=== PATIENT | female | born 2000 ===

== ENCOUNTER 2024-05-22 00:11 | Inpatient (IN) | payer MEDICAID, OTHER ==
[~2024-05-22] VITALS: Ht 160 cm; Wt 81.6 kg
[2024-05-22] MEDS ORDERED: OXYTOCIN 10UNIT/ML 1ML VIAL ONE (00:23)
[2024-05-22] MEDS ORDERED: METHYLERGONOVINE MALEATE 0.2 MG/ML AMP IM ONE (00:23)
[2024-05-22] MEDS ORDERED: LIDOCAINE 2%HCL (LOCAL ANESTH.) INJ 20ML MDV ONE (00:24)
[2024-05-22] MEDS ORDERED: BUTORPHANOL TARTRATE 2 MG/1 ML VIAL IV PRN ×2 (00:45)
[2024-05-22] MEDS ORDERED: PHYTONADIONE 1MG/0.5ML SYRINGE NEONATAL IM ONE (00:45)
[2024-05-22] MEDS ORDERED: HEPATITIS B PEDIATRIC VACCINE 10 MCG/0.5 ML IM ONE (00:45)
[2024-05-22] MEDS ORDERED: ERYTHROMY OPTH OINT 5mg/gm 1gm or 3.5gm tube OP ONE (00:45)
[2024-05-22] MEDS ORDERED: ACCU-CHEK COMFORT CURVE STRIP VI PRN (00:45)
[2024-05-22] MEDS ORDERED: LACTATED RINGER'S 1,000 ML IV SCH (00:45)
[2024-05-22 01:32] LABS: Urine Bacteria None Seen /hpf (None Seen)
[2024-05-22 01:36] LABS: Basophils # (auto) 0 10 ^3/uL (0-0.2); Eosinophils # (auto) 0 10 ^3/uL (0-0.8); Lymphocytes # (auto) 0.7 10 ^3/uL (0.4-5.4); Monocytes # (auto) 0.9 10 ^3/uL (0-1.3); Nucleated Red Blood Cells % 0.1 %; White Blood Cell 12.7 10^3/uL (4.4-10.8)
[2024-05-22 01:38] LABS: Basophils % (auto) 0.3 % (0.0-2.0); Hematocrit 32.9 % (36.0-46.0); Hemoglobin 10.8 g/dL (12.2-16.2); Lymphocytes % (auto) 5.6 % (10.0-50.0); Mean Corpuscular Hemoglobin 26.1 pg (28.0-32.0); Mean Corpuscular Hgb Conc. 32.7 g/dL (32.0-36.0); Mean Corpuscular Volume 79.8 fL (80.0-100.0); Monocytes % (auto) 7.4 % (0.0-12.0); Neutrophils % (auto) 86.7 % (37.0-80.0); Platelet Count (auto) 271 10^3/uL (140-450); Red Blood Cells 4.13 10^6/uL (4.0-5.20); Red Cell Distribution Width 16.1 % (11.8-14.3)
--- NOTE | 2024-05-22 01:48 | DVHHP2 ---
OB CC & HPI Date Date of Admission: May 22, 2024 Patient Identification: : 2 Para: 1 EDC: Jun 15, 2024 EGA: 36.4wks Chief Complaints: Reason for admission: active labor History of Present Complaints 23yo IUP@36.4wks presents to birthplace via ambulance with urge to push, reports SROM at 2312 with clear fluid, irregular UCs for the last 4 days. Denies VB/BARTH/vision changes/RUQ pain. Endorses +FM. Denies previous c/s scar pain/burning. Pt reports receiving PNC in [place] (last visit in dec 2023). Has not established OB care in [place]. No records available. OB hx: #1 - 05/2023, Primary C/S for severe preeclampsia at 29wks #2 - current Past Medical History Cardiac: No pertinent Hx Pulmonary: No pertinent Hx Central Nervous System: No pertinent Hx GI: No pertinent Hx Hemotology/Oncology: Iron deficiency anemia Hepatobiliary: No pertinent Hx Psychiatric: No pertinent Hx Musculoskeletal: No pertinent Hx Rheumotologic: No pertinent Hx Infectious Disease: No peritnent Hx ENT: No pertinent Hx Renal/: No pertinent Hx Endocrine: No pertinent Hx Dermatology: No pertinent Hx Past Surgical History: OB History OB History Care: Limited Care Ultrasounds: No ultrasounds Obstetrical Complications: None Medical Complications: None Allergies: Coded Allergies: Penicillins (Verified Adverse Reaction, Severe, severe nausea , 05/22/24) Home Meds PNV Current Medications Current Medications Medications (Trade) Dose Ordered Sig/Ruben Route PRN Reason Start Time Stop Time Status Last Admin Lactated Ringer's 1,000 ml @ 125 mls/hr Q8H IV 05/22/24 00:45 Witch Carmen (Tucks) 1 pad PRN PRN TOP PERINEAL AREA DISCOMFORT 05/22/24 00:45 Sodium Lauryl Sulfate (Phisoderm) 240 ml PRN PRN TOP PERINEAL AREA DISCOMFORT 05/22/24 00:45 Benzocaine (Dermoplast) 1 applic PRN PRN TOP PERINEAL AREA DISCOMFORT 05/22/24 00:45 Butorphanol Tartrate (Stadol Injection) 1 mg Q4HPRN PRN IV MODERATE PAIN (4-6 PAIN SCALE) 05/22/24 00:45 Butorphanol Tartrate (Stadol Injection) 2 mg Q4HPRN PRN IV SEVERE PAIN (7-10 PAIN SCALE) 05/22/24 00:45 Lidocaine HCl (Xylocaine) 20 ml ONCE PRN IJ PERINEAL AREA DISCOMFORT 05/22/24 00:45 Diagnostic Test (Pha) (Accu-Chek Comfort Curve T) 1 strip UD PRN blood glucose 05/22/24 00:45 05/23/24 00:44 UNV Family & Social History Family/Social History Past Family/Social History: denies Blood Type: Unknown Rubella: unknown RPR/VDRL: Unknown GBS Status: Unknown HBsAG: Unknown Review of Systems Constitutional: No symptom reported Ears, Nose, & Throat: No symptom reported Eyes: No symptom reported Pulmonary/Respiratory: No symptom reported Cardiovascular: No symptom reported Gastrointestinal: No symptom reported Genitourinary: No symptom reported Musculoskeletal: No symptom reported Skin: No symptom reported Psychiatric: No symptom reported Endocrine: No symptom reported Hemotologic/Lymphatic: No symptom reported OB Admission Exam Physical Exam Vitals: VSS, see chart +FHTs by RN HEENT: TMs Normal, Fontanelles Normal, Nasal Mucosa Normal, Eyes non-injected, Oropharynx Normal, PERRLA, Moist Membranes, EOMI Heart: Rhythm Normal Lungs: Clear Abdomen: Gravid Extremities: Normal Reflexes: Normal Pelvic Exam: deferred, head visible at perineum OB Plan Plan Admitting Diagnosis: precipitous Plan: Expectant Management Other Plan: Admit to L&D Informed consent obtained. Routine labs ordered KAVITA TEAGUE CNM May 22, 2024 01:48
[2024-05-22 01:52] LABS: INR 0.91 (0.9-1.15); Partial Thromboplastin Time 23.3 SEC (24.5-34.5); Prothrombin Time 9.7 sec (9.3-11.8)
[2024-05-22 01:53] LABS: Urine Blood TRACE /uL (Negative); Urine Clarity Clear (Clear); Urine Color Yellow (Yellow); Urine Mucus FEW (None Seen); Urine Protein, UAD TRACE (Negative); Urine Specific Gravity 1.026 (1.001-1.035); Urine Squamous Epithelial Cell None Seen /hpf (<5); Urine Urobilinogen Normal (Negative); Urine WBC 1 /HPF (0-5); Urine pH 5.5 (5.0-9.0)
--- NOTE | 2024-05-22 02:20 | LDN2 ---
Labor and Delivery Note Date 05/22/24 Age 23 2 Para 2 now AB 0 EDC 06/15/24 EGA 36.4wks Diagnosis precipitous Vaginal Delivery: (vertex) Vacuum Assisted: No Placenta: Spontaneous Sex: Female Weight 1990g Apgars 8/9 Nuchal Cord Present: Yes (loose NCx1) Nuchal Cord Transected: No Amniotic Fluid: Clear Anesthesia local Episiotomy: No Extension: No Lacerations: Yes (bilateral labial) Repaired with 3-0 vicryl EBL QBL 250ml Complications none Conditions stable Parliamentary Counsel Uriel Comments/Significant Med Cuong Pt denies previous c/s incision pain/burning. Dr. Malik consulted. Delivery Summary At 0012 this 23yo now delivered a viable Female by w/ APGARS 8/9. had vigorous cry at . VEDA presentation and loose Nuchal x1 with cord reduced after . placed skin to skin on pts chest. Cord clamped and cut at 60 seconds. Cord blood sent. Intact 3-vessel cord placenta delivered spontaneously, Braeden. Pitocin IV bolus started. Placenta sent to pathology. Patient had local anesthesia. Cervix/vagina inspected (intact) and bilateral labial lacerations present which was repaired with 3-0 vicryl suture. Straight catheter done, 100ml urine expelled. Fundus at U, firm, midline, and light lochia. QBL 250ml. VSS. Count correct x2. Patient to care and baby to couplet care, both stable. KAVITA TEAGUE CNM May 22, 2024 02:20
[2024-05-22] MEDS ORDERED: FER325T PO (02:25)
[2024-05-22] MEDS ORDERED: PREN-96 PO (02:25)
[2024-05-22] MEDS ORDERED: DOCU-265 PO (02:25)
[2024-05-22] MEDS ORDERED: IBU600T PO (02:25)
[2024-05-22] MEDS: IBUPROFEN 600 MG TAB PO PRN (02:27)
[2024-05-22] MEDS: PHISODERM TOP SOLN 240ML BTL TOP PRN (02:28)
[2024-05-22] MEDS: WITCH HAZEL-GLYCERIN PAD TOP PRN (02:28)
[2024-05-22] MEDS: DERMOPLAST 60ML BOTTLE TOP PRN (02:28)
[2024-05-22 02:29] LABS: Amphetamine Screen, Urine Neg (NEGATIVE); Barbiturate Scree,Urine Neg (NEGATIVE); Benzodiazephine Screen, Urine Neg (NEGATIVE); Cannabinoid Screen, Urine Neg (NEGATIVE); Cocaine Screen, Urine Neg (NEGATIVE); Opiate Scree,Urine Neg (NEGATIVE); Phencyclidine Screen, Urine Neg (NEGATIVE)
[2024-05-22 02:32] LABS: Alanine Aminotransferase 12 U/L (7-40); Albumin 4.5 g/dL (3.2-4.8); Anion Gap 10 (5-15); Aspartate Aminotransferase 25 U/L (13-40); BUN/Creatinine Ratio 16.1 (10.0-20.0); Blood Urea Nitrogen 10 mg/dL (9-23); Calcium 9.8 mg/dL (8.7-10.4); Carbon Dioxide 22 mmol/L (20-31); Chloride 103 mmol/L (98-107); Glucose 88 mg/dL (74-106); Potassium 3.8 mmol/L (3.5-5.1)
[2024-05-22 02:33] LABS: Alkaline Phosphatase 307 U/L (46-116); Bilirubin, Total 0.4 mg/dL (0.2-1.0); Sodium 135 mmol/L (136-145); Total Protein 7.7 g/dL (5.7-8.2)
[2024-05-22] MEDS: LACT. RINGERS/OXYTOCIN 20UNITS 500 ML IV ONE ×2 (04:01→04:02)
[2024-05-22] MEDS: LIDOCAINE 2%HCL (LOCAL ANESTH.) INJ 20ML MDV IJ PRN (04:04)
[2024-05-22] MEDS: METHYLERGONOVINE MALEATE 0.2 MG/ML AMP IM ONE (04:42)
[2024-05-22 06:38] VITALS: BP 121/78; PULSE 85; RESP 16; TEMP 98.6; O2SAT 100
[2024-05-22] MEDS: ACETAMINOPHEN 325 MG TAB PO PRN (06:57)
--- NOTE | 2024-05-22 15:47 | DVHPN2 ---
Chief Complaints Patient reports: No new complaints Nursing reports: No new complaints Objective Vitals Vital Signs Date Time Temp Pulse Resp B/P (MAP) Pulse Ox O2 Delivery O2 Flow Rate FiO2 05/22/24 06:43 Room Air 05/22/24 06:38 98.6 85 16 121/78 (92) 100 98.6 Medications Current Medications Medications (Trade) Dose Ordered Sig/Ruben Route PRN Reason Start Time Stop Time Status Last Admin Acetaminophen (Tylenol Tablet) 650 mg Q6HPRN PRN PO MILD PAIN (1-3 PAIN SCALE) 05/22/24 02:00 05/22/24 06:57 Benzocaine (Dermoplast) 1 applic PRN PRN TOP PERINEAL AREA DISCOMFORT 05/22/24 00:45 05/22/24 02:28 Diagnostic Test (Pha) (Accu-Chek Comfort Curve T) 1 strip UD PRN blood glucose 05/22/24 00:45 05/23/24 00:44 UNV Docusate Sodium (Colace Capsule) 200 mg HS PO 05/22/24 22:00 Ibuprofen (Motrin Tablet) 600 mg Q6HP PRN PO MODERATE PAIN (4-6 PAIN SCALE) 05/22/24 02:00 05/22/24 12:19 Lidocaine HCl (Xylocaine) 20 ml ONCE PRN IJ PERINEAL AREA DISCOMFORT 05/22/24 00:45 05/22/24 04:04 Sodium Lauryl Sulfate (Phisoderm) 240 ml PRN PRN TOP PERINEAL AREA DISCOMFORT 05/22/24 00:45 05/22/24 02:28 Witch Carmen (Tucks) 1 pad PRN PRN TOP PERINEAL AREA DISCOMFORT 05/22/24 00:45 05/22/24 02:28 General: Normal Lungs: Normal Cardiovascular: Normal Abdominal: Soft Studies Laboratory Tests 05/22/24 01:20 Test 05/22/24 01:20 Range/Units Serum Glucose 88 74-106 mg/dL Ass/Plan Assessment s/p Plan dc home fu in [place] DAGMAR DAHL DO May 22, 2024 15:47
--- NOTE | 2024-05-22 15:48 | DVHDS2 ---
Obstetrics Discharge Summary Obstetrics Discharge Summary Date of Admission: May 22, 2024 Date of Discharge: May 22, 2024 Reason For Admission: Onset of Labor Procedures: NST Intrapartum Procedures: Others () Operative Complicat: Laceration Discharge Diagnosis: Term -Delivered Discharge Information: Activity (Other), Diet (Routine), Medications (Name:), Discharge to (Home), Discarge date (05-22) DAGMAR DAHL DO May 22, 2024 15:48
[2024-05-22] MEDS ORDERED: DOCUSATE SOD 100 MG CAP PO SCH (22:00)
[2024-05-23 08:06] LABS: RPR Non Reactive (Non Reactive)
[2024-05-23 11:07] LABS: Rubella Antibodies, IgG 4.49 index (Immune >0.99)
[2024-05-23 19:06] LABS: Chlamydia Trachomatis, NAA Negative (Negative); Neisseria gonorrhoeae, NAA Negative (Negative)
== END 2024-05-22 16:10 | disposition home or self-care (01) | DRG 560 ==
LOC: LDRP 00:11
PROVIDERS: ADMIT Obstetrics & Gynecology; ATTEND Obstetrics & Gynecology
PROC: 10E0XZZ Delivery of Products of Conception, External Approach (ICD-10-PCS; principal; 2024-05-22)
PROC: 0UQMXZZ Repair Vulva, External Approach (ICD-10-PCS; 2024-05-22)
DX: O34.211 Maternal care for low transverse scar from previous cesarean delivery (principal); Z37.0 Single live birth; O69.81X0 Labor and delivery complicated by cord around neck, without compression, not applicable or unspecified; Z88.0 Allergy status to penicillin; Z3A.36 36 weeks gestation of pregnancy; O70.0 First degree perineal laceration during delivery; Z3A.39 39 weeks gestation of pregnancy
CPT/HCPCS: 36415; 59612; 80053; 80307; 81001; 81002; 85025; 85610; 85730; 86592; 86703; 86762; 86780; 86803; 86850; 86900; 86901; 87340; 94760; 96365; 96372; G0378